=== PATIENT | male | born 1965 | race Asian ===

== ENCOUNTER 2018-06-06 12:08 | Day surgery (SDC) | payer OTHER ==
[2018-06-06] MEDS ORDERED: MIDAZOLAM 1 MG/ML 2 ML INJ ×3 (16:15)
[2018-06-06] MEDS ORDERED: FENTAnyl 50 MCG/ML VIAL (16:15)
== END 2018-06-06 16:34 | disposition home or self-care (01) ==
LOC: GIL 12:08
DX: Z12.11 Encounter for screening for malignant neoplasm of colon (principal); D12.2 Benign neoplasm of ascending colon; K64.8 Other hemorrhoids
CPT/HCPCS: 45380; 88305